=== PATIENT | male | born 1945 | race Caucasian/White ===

== ENCOUNTER 2024-04-29 16:49 | Emergency (ER) | payer OTHER, MEDICARE ==
[2024-04-29] MEDS ORDERED: Sodium Chloride 0.9% 10 ML Syringe FLUSH PRN (16:54)
[2024-04-29 17:10] LABS: BASOPHILS PERCENT AUTO 0.6 % (0.0-1.0); EOSINOPHILS ABSOLUTE AUTO 0.1 K/mm3 (0.0-0.4); EOSINOPHILS PERCENT AUTO 1.6 % (0.0-6.0); HEMATOCRIT 40.2 % (42.0-52.0); HEMOGLOBIN 13.9 gm/dl (14.0-18.0); IMMATURE GRAN ABSOLUTE AUTO 0.03 K/mm3 (0.00-0.05); IMMATURE GRAN PERCENT AUTO 0.4 % (0.0-0.4); LYMPHOCYTES ABSOLUTE AUTO 1.1 K/mm3 (1.0-4.8); LYMPHOCYTES PERCENT AUTO 15.6 % (24.0-44.0); MEAN CORPUSCULAR HEMOGLOBIN 33.6 pg (28.0-32.0); MEAN CORPUSCULAR HGB CONC 34.6 g/dl (32.0-36.0); MEAN CORPUSCULAR VOLUME 97.1 fl (83.0-99.0); MEAN PLATELET VOLUME 9.5 fl (9.4-12.4); MONOCYTES ABSOLUTE AUTO 0.5 K/mm3 (0.0-0.8); MONOCYTES PERCENT AUTO 6.4 % (0.0-8.0); NEUTROPHILS ABSOLUTE AUTO 5.3 K/mm3 (1.8-7.7); NEUTROPHILS PERCENT AUTO 75.4 % (41.0-71.0); PLATELET COUNT,PLT 219 K/mm3 (150-400); RED BLOOD CELL COUNT 4.14 M/mm3 (4.52-5.90); WHITE BLOOD CELL COUNT,WBC 7.07 K/mm3 (3.9-11.3)
[2024-04-29] MEDS: Iopamidol 612 MG/ML 100 ML Bottle IVPUSH ONE (17:20)
[2024-04-29] MEDS ORDERED: Sodium Chloride 0.9% 100 ML IV SCH (17:30)
[2024-04-29 17:34] LABS: A/G RATIO 1.1 (1-2); ALANINE AMINOTRANSFERASE,ALT 8 U/L (16-63); ALBUMIN 3.5 g/dl (3.4-5.0); ALKALINE PHOSPHATASE 100 U/L (46-116); ANION GAP 18.7 (5-15); ASPARTATE AMNIOTRANSFERASE,AST 20 U/L (15-37); BILIRUBIN TOTAL 0.4 mg/dL (0.2-1.0); BLOOD UREA NITROGEN,BUN 14 mg/dL (7-18); BUN/CREATININE RATIO 10.8 (14-18); CARBON DIOXIDE,CO2 21 mEq/L (21-32); CHLORIDE,CL 103 mEq/L (98-107); CREATININE 1.3 mg/dL (0.7-1.3); ESTIMATED GFR 57 mL/min (>60); ETHANOL BLOOD MEDICAL 0.01 gm% (0.00); GLUCOSE RANDOM 120 mg/dL (70-99); LIPASE 32 U/L (16-77); POTASSIUM,K 3.7 mEq/L (3.5-5.1); PROTEIN TOTAL,TP 6.7 g/dl (6.4-8.2); SODIUM,NA 139 mEq/L (136-145)
[2024-04-29] MEDS: Diphtheria,Pertussis(Acell),Tetanus Vaccine 0.5 ML Syringe IM ONE (17:51)
[2024-04-29] MEDS ORDERED: Sodium Chloride 0.9% 1,000 ML ONE (18:22)
[2024-04-29] MEDS: Tranexamic Acid 1,000 MG/10 ML Vial IV ONE (18:33)
[2024-04-29] MEDS: Sodium Chloride 0.9% 1,000 ML IV ONE (18:50)
== END 2024-04-29 19:30 ==
LOC: JD.ED 16:49
DX: S22.040A Wedge compression fracture of fourth thoracic vertebra, initial encounter for closed fracture (principal); S36.039A Unspecified laceration of spleen, initial encounter; S00.31XA Abrasion of nose, initial encounter; Z79.82 Long term (current) use of aspirin; V49.40XA Driver injured in collision with unspecified motor vehicles in traffic accident, initial encounter; Y92.410 Unspecified street and highway as the place of occurrence of the external cause
CPT/HCPCS: 36415; 36430; 70450; 71045; 71260; 72125; 72170; 74177; 80053; 80307; 83690; 85025; 86850; 86900; 86901; 86922; 90471; 90715; 96374; 99285; J7030; P9016; Q9967; J3490